=== PATIENT | female | born 1955 | race Caucasian/White ===

== ENCOUNTER 2017-04-04 11:17 | Emergency (ER) | payer BC ==
[~2017-04-04] VITALS: Ht 157.5 cm; Wt 50.9 kg
[2017-04-04 11:23] VITALS: TEMP 36.7; Ht 157.5 cm; Wt 50.9 kg
[2017-04-04] MEDS ORDERED: LEVO75TA PO (12:09)
[2017-04-04] MEDS ORDERED: ASPI325T PO (12:09)
--- NOTE | 2017-04-04 12:30 | DIAGNOSTIC IMAGING REPORT ---
LEFT WRIST MIN 3 VIEWS ROUTINE CLINICAL HISTORY: Left wrist pain. COMPARISON: None FINDINGS: There is a markedly displaced comminuted distal left radial metaphyseal fracture with intra-articular extension. There is palmar angulation of the distal fracture fragment consistent with a Roberts fracture. There is an age indeterminate nondisplaced ulnar styloid fracture. Carpal bones appear intact. IMPRESSION: 1. Markedly displaced, comminuted distal left radial fracture with intra-articular extension. Palmar angulation of the distal fracture fragment consistent with a Roberts fracture. 2. Age indeterminate nondisplaced fracture of the tip of the ulnar styloid. Electronically signed by: Pancho Suarez M.D. 04/04/2017 12:29 PM Dictated Date/Time: 04/04/2017 12:25 PM
[2017-04-04] MEDS ORDERED: MoRPHine SULFATE 4 MG/ML 1 ML CARP\\VIAL IV STA (12:31)
[2017-04-04] MEDS ORDERED: ONDANSETRON INJ 2 MG/ML 2 ML VIAL IV STA (12:31)
[2017-04-04] MEDS ORDERED: MoRPHine SULFATE 4 MG/ML 1 ML CARP\\VIAL ONE (12:32)
[2017-04-04] MEDS ORDERED: LIDOCAINE/EPINEPHRINE 1% 20 ML VIAL ONE (12:32)
[2017-04-04] MEDS ORDERED: ONDANSETRON INJ 2 MG/ML 2 ML VIAL ONE (12:34)
[2017-04-04] MEDS ORDERED: LIDOCAINE HCL 1% 20 ML VIAL ONE (12:34)
[2017-04-04] MEDS ORDERED: LIDOCAINE HCL 1% 20 ML VIAL INFIL ONE (12:45)
--- NOTE | 2017-04-04 13:40 | DIAGNOSTIC IMAGING REPORT ---
LEFT WRIST 2 VIEW CLINICAL HISTORY: Fracture. Post reduction. COMPARISON: Left wrist radiographs April 04, 2017 11:56 AM. FINDINGS: Fine detail is diminished due to overlying cast. However, alignment of the distal left radial fracture has improved significantly since prior exam. IMPRESSION: Significant improvement in alignment of the distal left radial fracture post reduction. Electronically signed by: Pancho Suarez M.D. 04/04/2017 1:38 PM Dictated Date/Time: 04/04/2017 1:38 PM
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
[2017-04-04] MEDS ORDERED: OXYC-57 PO (14:24)
[2017-04-04 14:48] VITALS: BP 131/70; PULSE 55; O2SAT 100
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
== END 2017-04-04 14:50 | disposition home or self-care (01) ==
LOC: C.EDB 11:19 → C.EDD 14:50
DX: S52.532A Colles' fracture of left radius, initial encounter for closed fracture (principal); V18.3XXA Person boarding or alighting a pedal cycle injured in noncollision transport accident, initial encounter; Y92.89 Other specified places as the place of occurrence of the external cause; E03.9 Hypothyroidism, unspecified; Z79.82 Long term (current) use of aspirin; Z79.899 Other long term (current) drug therapy

== ENCOUNTER → 2017-05-11 | Outpatient (CLI) | payer BC ==
[~2017-05-11] MED LIST: ASPI325T PO; LEVO75TA PO; OXYC-57 PO
== END | disposition home or self-care (01) ==
LOC: C.MAMM 13:04
PROVIDERS: ATTEND Family Medicine
DX: M81.0 Age-related osteoporosis without current pathological fracture (principal)

== ENCOUNTER → 2017-07-27 | Outpatient (CLI) | payer BC ==
--- NOTE | 2017-07-28 07:48 | MAMMOGRAPHY REPORT ---
BILATERAL DIGITAL SCREENING MAMMOGRAM TOMOSYNTHESIS WITH CAD: 07/27/2017 CLINICAL HISTORY: Routine screening. Patient has no complaints. TECHNIQUE: Breast tomosynthesis in addition to standard 2D mammography was performed. Current study was also evaluated with a Computer Aided Detection (CAD) system. COMPARISON: Comparison is made to exams dated: 07/25/2016 mammogram, 07/24/2015 mammogram, 07/21/2014 m ammogram, 07/20/2013 mammogram - [facility], 07/04/2011 mammogram, and 06/04/2010 ma mmogram - [facility]. BREAST COMPOSITION: The tissue of both breasts is heterogeneously dense, which may obscure small mas ses. FINDINGS: Linear scar marker overlies the upper outer quadrant of the right breast. There are stable benign-appearing calcifications in the left breast. No suspicious mass, architectural distortion or cluster of suspicious microcalcifications is seen. IMPRESSION: ACR BI-RADS CATEGORY 1: NEGATIVE There is no mammographic evidence of malignancy. A 1 year screening mammogram is recommended. The pa tient will receive written notification of the results. Approximately 10% of breast cancers are not detected with mammography. A negative mammographic report should not delay biopsy if a clinically suggestive mass is present. Avis Quiñonez M.D. ay/:07/27/2017 20:50:11 Abalone Fisherman: Candy Che, [facility] letter sent: Normal 1/2 BI-RADS Code: ACR BI-RADS Category 1: Negative
== END | disposition home or self-care (01) ==
LOC: C.MAMM 13:18
PROVIDERS: ATTEND Family Medicine
DX: Z12.31 Encounter for screening mammogram for malignant neoplasm of breast (principal)